=== PATIENT | female | born 1970 | race Caucasian/White ===

== ENCOUNTER 2016-10-28 20:28 | Emergency (ER) | payer BC ==
[2016-10-28 21:13] LABS: BASOPHIL % 0.3 % (0.0-0.4); Eosinophil % 2.4 % (0.00-5.0); Granulocytes % 59.7 % (36.0-66.0); Lymphocytes % 29.8 % (24.0-44.0); Mean Cell Volume 86.6 fl (78-100); Mean Corpuscular Hemoglobin 29.4 pg (26-32); Monocytes % 7.8 % (0.0-12.0); Platelet Count 279 K/mm3 (150-450); Red Blood Count 4.86 M/mm3 (4.1-5.4); Red Cell Distribution Width 12.9 % (11.5-14.0)
--- NOTE | 2016-10-28 21:19 | ERPHSYRPT ---
- History of Present Illness Time Seen by Provider: 10/28/16 21:17 Source: patient Exam Limitations: no limitations Patient Subjective Stated Complaint: Chest began to hurt around 0200 this morning. Started coughing yesterday. Coughing up thick yellow sputum. Stayed in bed all day and is now needing something for relief of chest pain. Triage Nursing Assessment: Pt A&O x3. Gait steady. Lung sounds diminished and clear. Coughing frequently. Doesn't appear to be in any other distress. Physician History: Chest began to hurt around 0200 this morning. Started coughing yesterday. Coughing up thick yellow sputum. Stayed in bed all day and is now needing something for relief of chest pain. Timing/Duration: today Cough Quality/Degree: productive cough Associated Symptoms: chest pain/soreness, cough, muscle aches, sore throat International travel in last 2 weeks: No Allergies/Adverse Reactions: No Known Drug Allergies Allergy (Verified 01/31/16 00:17) Home Medications: Escitalopram Oxalate 10 mg [Lexapro 10 MG] 1 tablet PO DAILY 10/28/16 [ History] Lisinopril 10 mg [Zestril 10 MG] 1 tablet PO DAILY 10/28/16 [History] Metformin HCl Xr 500 mg [Glucophage XR 500 MG] 1 tablet PO DAILY 10/28/16 [History] Hx Tetanus, Diphtheria Vaccination/Date Given: No Hx Influenza Vaccination/Date Given: No Hx Pneumococcal Vaccination/Date Given: No Immunizations Up to Date: Yes - Review of Systems Constitutional: No Fever, No Chills Eyes: No Symptoms Ears, Nose, & Throat: No Symptoms Respiratory: Cough, No Dyspnea Cardiac: No Chest Pain, No Edema, No Syncope Abdominal/Gastrointestinal: No Abdominal Pain, No Nausea, No Vomiting, No Diarrhea Genitourinary Symptoms: No Dysuria Musculoskeletal: No Back Pain, No Neck Pain Skin: No Rash Neurological: No Dizziness, No Focal Weakness, No Sensory Changes Psychological: No Symptoms Endocrine: No Symptoms All Other Systems: Reviewed and Negative - Past Medical History Pertinent Past Medical History: Yes Neurological History: No Pertinent History ENT History: No Pertinent History Cardiac History: No Pertinent History Respiratory History: Asthma Endocrine Medical History: No Pertinent History Musculoskeletal History: No Pertinent History GI Medical History: No Pertinent History History: No Pertinent History Psycho-Social History: No Pertinent History Female Reproductive Disorders: No Pertinent History - Past Surgical History Past Surgical History: Yes Neuro Surgical History: No Pertinent History Cardiac: No Pertinent History Respiratory: No Pertinent History Gastrointestinal: No Pertinent History Genitourinary: No Pertinent History Musculoskeletal: No Pertinent History Female Surgical History: Section, Tubal Ligation - Social History Smoking Status: Current every day smoker How long have you smoked: 30 years Exposure to second hand smoke: No Drug Use: none Patient Lives Alone: No - Female History Hx Last Menstrual Period: 10/27/2016 - Nursing Vital Signs Nursing Vital Signs: Initial Vital Signs Temperature 98.0 F 10/28/16 20:34 Pulse Rate 92 H 10/28/16 20:34 Blood Pressure 139/98 10/28/16 20:34 O2 Sat by Pulse Oximetry 98 10/28/16 20:34 Pain Scale Pain Intensity 8 - Physical Exam General Appearance: no apparent distress, alert Eye Exam: PERRL/EOMI, eyes nml inspection Ears, Nose, Throat Exam: normal ENT inspection, TMs normal, pharynx normal, moist mucous membranes Neck Exam: normal inspection, non-tender, supple, full range of motion Respiratory Exam: normal breath sounds, lungs clear, No respiratory distress Cardiovascular Exam: regular rate/rhythm, normal heart sounds Gastrointestinal/Abdomen Exam: soft, No tenderness Back Exam: normal inspection, No CVA tenderness, No vertebral tenderness Extremity Exam: normal inspection, normal range of motion Neurologic Exam: alert, oriented x 3, cooperative, normal mood/affect, sensation nml, No motor deficits Skin Exam: normal color, warm, dry, No rash Lymphatic Exam: No adenopathy SpO2: 98 Oxygen Delivery: Room Air - Course Nursing assessment & vital signs reviewed: Yes - Radiology Exams Chest X-ray Interpretation: Reviewed by me (right lower lobe infiltrate) Ordered Tests: Active Orders 24 hr Category Date Time Status CHEST 2 VIEWS (PA AND LAT) Stat Exams 10/28/16 21:07 Taken CBC W DIFF Stat Lab 10/28/16 21:09 Completed CMP Stat Lab 10/28/16 21:09 Completed CULTURE, THROAT Stat Lab 10/28/16 21:09 Received STREP SCREEN-BETA A Stat Lab 10/28/16 21:09 Completed Medication Summary Discontinued Medications Generic Name Dose Route Start Last Admin Trade Name Freq PRN Reason Stop Dose Admin Ceftriaxone Sodium 1,000 mg 10/28/16 21:47 Rocephin 1000 Mg Inj IM 10/28/16 21:48 STAT ONE Guaifenesin/Codeine Phosphate 10 ml 10/28/16 21:47 Robitussin Ac Syrup Unit Dose Cup PO 10/28/16 21:48 STAT ONE Lab/Rad Data: Laboratory Result Diagrams 10/28/16 21:09 10/28/16 21:09 Laboratory Results 10/28/16 10/28/16 10/28/16 Range/Units 21:09 21:09 21:09 WBC 9.0 (4.0-10.5) K/mm3 RBC 4.86 (4.1-5.4) M/mm3 Hgb 14.3 (12.0-16.0) gm/dl Hct 42.1 (35-47) % MCV 86.6 (78-100) fl MCH 29.4 (26-32) pg MCHC 34.0 (32-36) g/dl RDW 12.9 (11.5-14.0) % Plt Count 279 (150-450) K/mm3 MPV 10.0 H (6-9.5) fl Gran % 59.7 (36.0-66.0) % Lymphocytes % 29.8 (24.0-44.0) % Monocytes % 7.8 (0.0-12.0) % Eosinophils % 2.4 (0.00-5.0) % Basophils % 0.3 (0.0-0.4) % Basophils # 0.03 (0-0.4) Sodium 141 (136-145) mEq/L Potassium 4.2 (3.5-5.1) mEq/L Chloride 106 (98-107) mEq/L Carbon Dioxide 22.4 (21-32) mEq/L Anion Gap 16.9 H (5-15) MEQ/L BUN 13 (9-20) mg/dL Creatinine 0.80 (0.55-1.30) mg/dl Estimated GFR > 60 ML/MIN Glucose 167 H (70-110) MG/DL Calcium 9.0 (8.5-10.1) mg/dL Total Bilirubin 0.50 (0.2-1.0) mg/dL AST 16 (15-37) U/L ALT 30 (12-78) U/L Alkaline Phosphatase 64 (46-116) U/L Serum Total Protein 7.5 (6.4-8.2) gm/dL Albumin 3.7 (3.4-5.0) g/dL Streptococcus Screen NEGATIVE (Negative) - Progress Progress: improved Air Movement: fair Blood Culture(s) Obtained: No Antibiotics given: Yes Counseled pt/family regarding: lab results, diagnosis, need for follow-up, rad results - Departure Time of Disposition: 21:51 Departure Disposition: Home Clinical Impression: Pneumonia Qualifiers: Pneumonia type: due to unspecified organism Laterality: right Lung location: lower lobe of lung Qualified Code(s): J18.1 - Lobar pneumonia, unspecified organism Condition: Stable Critical Care Time: No Referrals: KANWAL MENSAH [Primary Care Provider] - Instructions: Pneumonia -- Adult Additional Instructions: Please follow the instructions given to you. Please take your medication as prescribed if given. If symptoms recur or get worse, come back to the emergency room if you cannot reach your primary care physician, or call your primary care physician for an appointment. Again if your symptoms get worse, come back to the emergency room. Thanks for visiting emergency room, and let us take care of you. Prescriptions: Amoxicillin 500 mg Cap [Amoxil 500 mg] 500 mg PO TID #30 capsule Guaifenesin/Codeine Phos [Cheratussin AC Syrup] 5 ml PO Q6H #150 liquid
[2016-10-28 21:31] LABS: ALBUMIN 3.7 g/dL (3.4-5.0); ALKALINE PHOSPHATASE 64 U/L (46-116); ANION GAP 16.9 MEQ/L (5-15); BLOOD UREA NITROGEN 13 mg/dL (9-20); CHLORIDE 106 mEq/L (98-107); Carbon Dioxide 22.4 mEq/L (21-32); Glucose 167 MG/DL (70-110); Potassium 4.2 mEq/L (3.5-5.1); SGOT/AST 16 U/L (15-37); SGPT/ALT 30 U/L (12-78); SODIUM 141 mEq/L (136-145); Total Protein 7.5 gm/dL (6.4-8.2)
[2016-10-28] MEDS ORDERED: Rocephin 1000 MG INJ IM ONE (21:47)
[2016-10-28] MEDS ORDERED: Robitussin AC Syrup Unit Dose Cup PO ONE (21:47)
[2016-10-28] MEDS ORDERED: Rocephin 1000 MG INJ ONE (22:02)
[2016-10-28 22:35] VITALS: BP 128/84; PULSE 89; O2SAT 97
[2016-10-28] MEDS ORDERED: XYLOCAINE 1% HCL 20 ML MDV ONE (23:03)
--- NOTE | 2016-10-29 08:21 | XRAY ---
Indication: Congestion. Comparison: May 06, 2014. PA/lateral chest remains clear. Heart is not enlarged. Bony thorax intact. No new/acute findings. Impression: Stable nonacute chest.
== END 2016-10-28 22:34 | disposition home or self-care (01) ==
LOC: ED 20:28
DX: J18.1 Lobar pneumonia, unspecified organism (principal); R07.9 Chest pain, unspecified; R05 Cough; J02.9 Acute pharyngitis, unspecified; Z79.899 Other long term (current) drug therapy; Z79.84 Long term (current) use of oral hypoglycemic drugs
CPT/HCPCS: 36415; 71020; 80053; 85025; 87070; 87430; 96372; 99284; J0696

== ENCOUNTER 2017-04-24 02:09 | Emergency (ER) | payer BC, OTHER ==
[2017-04-24 02:33] VITALS: BP 182/116; PULSE 88; O2SAT 98
--- NOTE | 2017-04-24 03:06 | ERPHSYRPT ---
- History of Present Illness Time Seen by Provider: 04/24/17 03:01 Source: patient Exam Limitations: no limitations Patient Subjective Stated Complaint: my 2 fingers started turning purple laast night around 6pm.. no injury. pain and burning Triage Nursing Assessment: alert. noted left 4th and 5th finger of left hand purple to midjoint. denies injury.. started at 1800 yesterday,, Increasing pain and discoloration.. Palpable radial pulse present. no other concerns Physician History: no trauma, pt just noted finger cold and numb , no prior vascular disease the finger tips are cold no vascular diseases reported; Occurred: yesterday Method of Injury: unknown Quality: constant Severity of Pain-Max: moderate Severity of Pain-Current: moderate Extremities Pain Location: 4th finger: left, 5th finger: left Modifying Factors: Improves With: nothing Associated Symptoms: none Allergies/Adverse Reactions: No Known Drug Allergies Allergy (Verified 01/31/16 00:17) Home Medications: Escitalopram Oxalate 10 mg [Lexapro 10 MG] 1 tablet PO DAILY 10/28/16 [ History] Lisinopril 10 mg [Zestril 10 MG] 1 tablet PO DAILY 10/28/16 [History] Metformin HCl Xr 500 mg [Glucophage XR 500 MG] 1 tablet PO DAILY 10/28/16 [History] Hx Tetanus, Diphtheria Vaccination/Date Given: No Hx Influenza Vaccination/Date Given: No Hx Pneumococcal Vaccination/Date Given: No Immunizations Up to Date: (unknown) - Review of Systems Constitutional: No Fever, No Chills Eyes: No Symptoms Ears, Nose, & Throat: No Symptoms Respiratory: No Cough, No Dyspnea Cardiac: No Chest Pain, No Edema, No Syncope Abdominal/Gastrointestinal: No Abdominal Pain, No Nausea, No Vomiting, No Diarrhea Genitourinary Symptoms: No Dysuria Musculoskeletal: No Back Pain, No Neck Pain Skin: No Rash Neurological: No Dizziness, No Focal Weakness, No Sensory Changes Psychological: No Symptoms Endocrine: No Symptoms All Other Systems: Reviewed and Negative - Past Medical History Pertinent Past Medical History: Yes Neurological History: No Pertinent History ENT History: No Pertinent History Cardiac History: No Pertinent History Respiratory History: Asthma Endocrine Medical History: No Pertinent History Musculoskeletal History: No Pertinent History GI Medical History: No Pertinent History History: No Pertinent History Psycho-Social History: No Pertinent History Female Reproductive Disorders: No Pertinent History - Past Surgical History Past Surgical History: Yes Neuro Surgical History: No Pertinent History Cardiac: No Pertinent History Respiratory: No Pertinent History Gastrointestinal: No Pertinent History Genitourinary: No Pertinent History Musculoskeletal: No Pertinent History Female Surgical History: Section, Tubal Ligation - Social History Smoking Status: Current every day smoker How long have you smoked: 30 years Exposure to second hand smoke: Yes Drug Use: none Patient Lives Alone: No - Female History Hx Now: No - Nursing Vital Signs Nursing Vital Signs: Initial Vital Signs Temperature 98.4 F 04/24/17 02:20 Pulse Rate 88 04/24/17 02:20 Respiratory Rate 20 04/24/17 02:20 Blood Pressure 182/116 04/24/17 02:20 O2 Sat by Pulse Oximetry 98 04/24/17 02:20 Pain Scale Pain Intensity 7 - Physical Exam General Appearance: alert Eyes, Ears, Nose, Throat Exam: moist mucous membranes Neck Exam: non-tender, supple Cardiovascular/Respiratory Exam: chest non-tender, normal breath sounds, regular rate/rhythm, no respiratory distress Abdominal Exam: non-tender, No guarding Back Exam: normal inspection, No vertebral tenderness Shoulder Exam: normal inspection, non-tender, no evidence of injury, normal ROM Elbow/Forearm Exam: normal inspection, non-tender, no evidence of injury, normal ROM Wrist Exam: normal inspection, non-tender, no evidence of injury, normal ROM Hand Exam: normal inspection, non-tender, no evidence of injury, normal ROM, ecchymosis (left 4th and 5th) DTR - Upper Extremity Exam: bicep (R): 2+, bicep (L): 2+, tricep (R): 2+, tricep (L): 2+ Neuro/Tendon Exam: normal motor functions, sensory deficit (left 4th and 5th tips ) Mental Status Exam: alert, oriented x 3, cooperative Skin Exam: normal color, warm, dry SpO2 Interpretation: normal SpO2: 98 Oxygen Delivery: Room Air - Course Nursing assessment & vital signs reviewed: Yes EKG Interpreted by Me: Sinus Rhythm, NORMAL AXIS, NORMAL QRS, Non-specific ST Changes - Radiology Ultrasound Exam Arterial Upper Extremity Ultrasound: No Torsion/Nml Flow Venous Upper Extremity Ultrasound: No Torsion/Nml Flow, Other (no DVT;) Ordered Tests: Active Orders 24 hr Category Date Time Status EKG-ER Only STAT Care 04/24/17 03:19 Active IV Insertion STAT Care 04/24/17 03:14 Active ARTERIAL UNILAT/LTD UPPER EXT [US] Stat Exams 04/24/17 06:16 Ordered VENOUS UNILAT/LIMITED EXTREMIT [US] Stat Exams 04/24/17 07:15 Ordered BMP Stat Lab 04/24/17 03:45 Completed CBC W DIFF Stat Lab 04/24/17 03:30 Completed Lactic Acid Stat Lab 04/24/17 04:12 Completed PROTIME WITH INR Stat Lab 04/24/17 03:30 Completed SED RATE [Erythrocyte Sedimentation Rate] Stat Lab 04/24/17 06:40 Ordered Medication Summary Discontinued Medications Generic Name Dose Route Start Last Admin Trade Name Freq PRN Reason Stop Dose Admin Aspirin 81 mg 04/24/17 03:16 04/24/17 03:30 Baby Aspirin 81 Mg Chew PO 04/24/17 03:17 81 mg STAT ONE Administration Aspirin Confirm 04/24/17 03:20 Baby Aspirin 81 Mg Chew Administered 04/24/17 03:21 Dose 81 mg .ROUTE .STK-MED ONE Doxazosin Mesylate 1 mg 04/24/17 05:38 04/24/17 06:05 Cardura 2 Mg PO 04/24/17 05:39 1 mg STAT ONE Administration Sodium Chloride 1,000 mls @ 999 mls/hr 04/24/17 03:14 04/24/17 03:30 Sodium Chloride 0.9% 1000 Ml IV 04/24/17 04:14 999 mls/hr .Q1H1M STA Administration Sodium Chloride Confirm 04/24/17 03:20 Sodium Chloride 0.9% 1000 Ml Administered 04/24/17 03:21 Dose 1,000 mls @ ud .ROUTE .STK-MED ONE Lorazepam 1 mg 04/24/17 05:50 04/24/17 06:02 Ativan 1 Mg PO 04/24/17 05:51 1 mg STAT ONE Administration Lorazepam Confirm 04/24/17 05:57 Ativan 1 Mg Administered 04/24/17 05:58 Dose 1 mg .ROUTE .STK-MED ONE Nitroglycerin 1 gm 04/24/17 03:16 04/24/17 03:32 Nitro-Bid 2% Ud Packets TOP 04/24/17 03:17 1 gm STAT ONE Administration Nitroglycerin Confirm 04/24/17 03:31 Nitro-Bid 2% Ud Packets Administered 04/24/17 03:32 Dose 1 gm .ROUTE .STK-MED ONE Lab/Rad Data: Laboratory Result Diagrams 04/24/17 03:30 04/24/17 03:45 Laboratory Results 04/24/17 04/24/17 04/24/17 Range/Units 04:12 03:45 03:30 WBC (4.0-10.5) K/mm3 RBC (4.1-5.4) M/mm3 Hgb (12.0-16.0) gm/dl Hct (35-47) % MCV (78-100) fl MCH (26-32) pg MCHC (32-36) g/dl RDW (11.5-14.0) % Plt Count (150-450) K/mm3 MPV (6-9.5) fl Gran % (36.0-66.0) % Lymphocytes % (24.0-44.0) % Monocytes % (0.0-12.0) % Eosinophils % (0.00-5.0) % Basophils % (0.0-0.4) % Basophils # (0-0.4) INR 1.02 (0.8-3.0) Sodium 139 (137-145) mmol/L Potassium 4.1 (3.5-5.1) mmol/L Chloride 101 (98-107) mmol/L Carbon Dioxide 24 (22-30) mmol/L Anion Gap 18.1 H (5-15) MEQ/L BUN 15 (7-17) mg/dL Creatinine 0.78 (0.52-1.04) mg/dL Estimated GFR > 60 ML/MIN Glucose 211 H (74-106) mg/dL Lactic Acid 1.7 (0.4-2.0) Calcium 9.8 (8.4-10.2) mg/dL 04/24/17 Range/Units 03:30 WBC 11.3 H (4.0-10.5) K/mm3 RBC 4.72 (4.1-5.4) M/mm3 Hgb 13.5 (12.0-16.0) gm/dl Hct 40.4 (35-47) % MCV 85.6 (78-100) fl MCH 28.6 (26-32) pg MCHC 33.4 (32-36) g/dl RDW 12.9 (11.5-14.0) % Plt Count 290 (150-450) K/mm3 MPV 10.4 H (6-9.5) fl Gran % 60.7 (36.0-66.0) % Lymphocytes % 31.6 (24.0-44.0) % Monocytes % 5.8 (0.0-12.0) % Eosinophils % 1.6 (0.00-5.0) % Basophils % 0.3 (0.0-0.4) % Basophils # 0.03 (0-0.4) INR (0.8-3.0) Sodium (137-145) mmol/L Potassium (3.5-5.1) mmol/L Chloride (98-107) mmol/L Carbon Dioxide (22-30) mmol/L Anion Gap (5-15) MEQ/L BUN (7-17) mg/dL Creatinine (0.52-1.04) mg/dL Estimated GFR ML/MIN Glucose (74-106) mg/dL Lactic Acid (0.4-2.0) Calcium (8.4-10.2) mg/dL - Progress Progress: improved, re-examined Progress Note: 04/24/17 06:[address] with contrast - so will have to get US to evaluate for vascular flow and rule out DVT as well - turning over to Dr. Blount for final dispo after that ; this will further delay dispo 04/24/17 06:35 04/24/17 07:52 discussed doppler findimgs with pt and limitations and that vascular problem may still exist and that we have not determined the cause of her symptoms which could evolve to a more serious condition; she wishes DC to f/u PCP for specialty referral today reather than further w/u here at this time; she is improved after therapy and has good cap refill and sensation at this time coloration has improved as well; Counseled pt/family regarding: lab results, diagnosis, need for follow-up, rad results - Departure Time of Disposition: 07:55 Departure Disposition: Home 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 we used topical nitro paste and 1 mg of doxazosin to help your symptoms and your dr may wish to prescribe these or select their own therapy. other blood tests for rheumatologic conditions which take longer to come back with results may be checked by your dr . return meantime if any concerns or not improving.
[2017-04-24] MEDS ORDERED: Sodium Chloride 0.9% 1000 ML 1,000 ML IV STA (03:14)
[2017-04-24] MEDS ORDERED: BABY ASPIRIN 81 MG CHEW PO ONE (03:16)
[2017-04-24] MEDS ORDERED: NITRO-BID 2% UD PACKETS TOP ONE (03:16)
[2017-04-24] MEDS ORDERED: Sodium Chloride 0.9% 1000 ML 1,000 ML ONE (03:20)
[2017-04-24] MEDS ORDERED: BABY ASPIRIN 81 MG CHEW ONE (03:20)
[2017-04-24] MEDS ORDERED: NITRO-BID 2% UD PACKETS ONE (03:31)
[2017-04-24 04:01] LABS: BASOPHIL % 0.3 % (0.0-0.4); Basophil (Absolute #) 0.03 (0-0.4); Eosinophil % 1.6 % (0.00-5.0); Eosinophil (Absolute #) 0.18 (0-0.5); Granulocyte Absolute (ANC) 6.84 (1.4-6.9); Granulocytes % 60.7 % (36.0-66.0); Hematocrit 40.4 % (35-47); Hemoglobin 13.5 gm/dl (12.0-16.0); Lymphocyte (Absolute #) 3.56 (1.0-4.6); Lymphocytes % 31.6 % (24.0-44.0); Mean Cell Volume 85.6 fl (78-100); Mean Corpuscular Hemoglobin 28.6 pg (26-32); Mean Corpuscular Hgb Concent. 33.4 g/dl (32-36); Mean Platelet Volume 10.4 fl (6-9.5); Monocyte (Absolute #) 0.65 (0.0-1.3); Monocytes % 5.8 % (0.0-12.0); Platelet Count 290 K/mm3 (150-450); Red Blood Count 4.72 M/mm3 (4.1-5.4); Red Cell Distribution Width 12.9 % (11.5-14.0); White Blood Count 11.3 K/mm3 (4.0-10.5)
[2017-04-24 04:22] LABS: INR 1.02 (0.8-3.0)
[2017-04-24 05:18] LABS: ANION GAP 18.1 MEQ/L (5-15); BLOOD UREA NITROGEN 15 mg/dL (7-17); CHLORIDE 101 mmol/L (98-107); Calcium 9.8 mg/dL (8.4-10.2); Carbon Dioxide 24 mmol/L (22-30); Creatinine 1 0.78 mg/dL (0.52-1.04); Glucose 211 mg/dL (74-106); Potassium 4.1 mmol/L (3.5-5.1); SODIUM 139 mmol/L (137-145)
[2017-04-24] MEDS ORDERED: CARDURA 2 MG PO ONE (05:38)
[2017-04-24] MEDS ORDERED: Ativan 1 MG PO ONE (05:50)
[2017-04-24] MEDS ORDERED: Ativan 1 MG ONE (05:57)
--- NOTE | 2017-04-24 08:34 | XRAY ---
Indication: Discolored fingers. Two-dimensional sonogram and color Doppler imaging of the major arteries of the left upper extremity was performed. Comparison: None Visualized left common carotid, subclavian, axillary, brachial, radial, and ulnar arteries are negative for focal arteriosclerotic plaquing, critical stenosis, or obstruction. Subclavian, axillary, and brachial arterial waveforms are multiphasic. Radial and ulnar arterial waveforms are monophasic. Impression: Left upper extremity arterial sonogram is negative.
--- NOTE | 2017-04-24 08:36 | XRAY ---
Indication: Discolored fingers and pain. Two-dimensional sonogram and color Doppler imaging of the major venous vessels of the left upper extremity was performed. Comparison: None Visualized left jugular, subclavian, axillary, cephalic, basilic, brachial, median cubital, radial, and ulnar veins are negative for thrombosis, stenosis, or obstruction. Veins demonstrate normal compressibility. Venous waveforms are normal. Impression: Left upper extremity negative for venous thrombosis.
== END 2017-04-24 08:37 | disposition home or self-care (01) ==
LOC: ED 02:09
DX: I65.9 Occlusion and stenosis of unspecified precerebral artery (principal); M79.645 Pain in left finger(s); R20.0 Anesthesia of skin; J45.909 Unspecified asthma, uncomplicated; Z79.899 Other long term (current) drug therapy; Z72.0 Tobacco use
CPT/HCPCS: 36000; 36415; 80048; 83605; 85025; 85610; 93005; 93931; 93971; 96360; 99284; A9270-GY